=== PATIENT | female | born 1965 | race Caucasian/White ===

== ENCOUNTER → 2016-09-06 | Outpatient (CLI) | payer BC ==
[~2016-09-06] MED LIST: B-CO1CAP3 PO; CALC600T9 PO; DIGE1CAP10 PO; FLAX1CAP11 PO; LEVO25TA5 PO; MAGN30TA4 PO; MULT-506 PO; OREGCAP PO; SINCALIDE IV ONE; SODIUM CHLORIDE 0.9% IV ONE; ST J150C6 PO; ZINC1CAP PO
--- NOTE | 2016-09-06 13:05 | DIAGNOSTIC IMAGING REPORT ---
NUCLEAR MEDICINE HEPATOBILIARY SCAN WITH EJECTION FRACTION HISTORY: EPIGASTRIC PAIN, FAM HX OF GB DISEASE COMPARISON: Hepatobiliary scan 04/30/2011. TECHNIQUE: Immediately following the intravenous administration of 5.7 mCi Tc-99m Choletec, dynamic anterior abdominal imaging pre/post 0.7 mcg of Kinevac was performed. FINDINGS: Uniform hepatic tracer accumulation is shown. Prompt intrahepatic biliary excretion is seen. The gallbladder and common bile duct are identified at 30 minutes. Delayed visualization of the small bowel at 79 minutes. This could be a normal variant. The gall bladder ejection fraction following administration of Kinevac was 73% (normal >35%). IMPRESSION: 1. No evidence for cystic duct obstruction. 2. Gallbladder ejection fraction calculated to be 73 %. Electronically signed by: Akil Toscano M.D. 09/06/2016 1:03 PM Dictated Date/Time: 09/06/2016 1:01 PM
== END | disposition home or self-care (01) ==
LOC: C.NUCL 10:08
PROVIDERS: ATTEND Internal Medicine Gastroenterology
DX: R10.13 Epigastric pain (principal); Z83.79 Family history of other diseases of the digestive system

== ENCOUNTER → 2016-09-12 | Outpatient (CLI) | payer BC ==
[~2016-09-12] MED LIST changes: -SINCALIDE IV ONE; -SODIUM CHLORIDE 0.9% IV ONE
--- NOTE | 2016-09-12 08:42 | DIAGNOSTIC IMAGING REPORT ---
CLINICAL HISTORY: ULTRASOUND ABDOMEN COMPLETE CLINICAL HISTORY: Epigastric abdominal pain. COMPARISON STUDY: Abdominal ultrasound dated 03/08/2014. TECHNIQUE: Real-time, grayscale, and color flow sonography of the abdomen was performed. Images are reviewed in the transverse and longitudinal planes. FINDINGS: Liver: The liver is normal in size and echotexture. There is no intrahepatic biliary ductal dilatation. The main portal vein is patent. Gallbladder: The gallbladder is normal in appearance. No gallstones are identified. There is no gallbladder wall thickening or pericholecystic fluid. A sonographic Broussard's sign is reportedly absent. The common bile duct measures up to 0.4 cm in diameter. Pancreas: Visualized portions of the pancreatic head and body are normal in appearance. Spleen: The spleen is normal in size and echotexture, measuring 8.9 cm in length. Kidneys: The kidneys are normal in size and echotexture. There is no hydronephrosis. The right kidney measures 8.8 cm in length and the left kidney measures 8.9 cm in length. No shadowing calculi are identified. Abdominal vasculature: Visualized portions of the abdominal aorta are normal in caliber noting moderate atherosclerotic regularity. The IVC is normal in appearance. Ascites: None. IMPRESSION: No acute sonographic abnormality is identified. No gallstones are seen. Electronically signed by: Romario Barros M.D. 09/12/2016 8:41 AM Dictated Date/Time: 09/12/2016 8:12 AM
== END | disposition home or self-care (01) ==
LOC: C.ULTR 07:20
PROVIDERS: ATTEND Internal Medicine Gastroenterology
DX: R10.13 Epigastric pain (principal); I70.0 Atherosclerosis of aorta

== ENCOUNTER → 2016-09-17 | Outpatient (CLI) | payer BC | END | disposition home or self-care (01) | LOC: C.MAMM 13:46 | PROVIDERS: ATTEND Family Medicine | DX: M85.89 Other specified disorders of bone density and structure, multiple sites (principal) ==

== ENCOUNTER → 2017-06-27 | Outpatient (CLI) | payer OTHER ==
--- NOTE | 2017-06-27 16:38 | DIAGNOSTIC IMAGING REPORT ---
RIGHT SCAPULA 2 VIEWS CLINICAL HISTORY: RIGHT SCAPULAR PAIN COMPARISON STUDY: None. FINDINGS: No fractures identified within the scapula. No fracture or dislocation within the right shoulder. Soft tissues are unremarkable. IMPRESSION: Normal right scapula. Electronically signed by: Akil Toscano M.D. 06/27/2017 4:36 PM Dictated Date/Time: 06/27/2017 4:35 PM
--- NOTE | 2017-06-27 17:51 | DIAGNOSTIC IMAGING REPORT ---
RIBS UNILATERAL WITH PA CHEST CLINICAL HISTORY: Right sided rib pain. COMPARISON STUDY: No previous studies for comparison. FINDINGS: There is no pneumothorax or pleural effusion. Cardiac size is normal. Mediastinal contours are normal. No acute right rib fractures are identified. There is no consolidation or evidence for pulmonary edema. IMPRESSION: No pneumothorax. No acute right rib fractures identified. Electronically signed by: Fortino Landon M.D. 06/27/2017 5:50 PM Dictated Date/Time: 06/27/2017 5:48 PM
== END | disposition home or self-care (01) ==
LOC: C.RAD1850 15:35
PROVIDERS: ATTEND Student in an Organized Health Care Education/Training Program
DX: R07.81 Pleurodynia (principal); M89.8X1 Other specified disorders of bone, shoulder